=== PATIENT | female | born 1975 | race Caucasian/White ===

== ENCOUNTER → 2016-07-08 | Outpatient (CLI) | payer BC, OTHER ==
[~2016-07-08] MED LIST: CYMBALTA PO; DIAZEPAM PO; DOCUSATE SODIU100 MG PO; DULOXETINE HCL60 MG PO; GENTLE LAXATIVE10 MG PR; GLIPIZIDE10 MG PO; GLUCOTROL10 MG PO; HYDROCHLOROTHIA25 MG PO; LABETALOL HCL200 MG PO; LISINOPRIL20 MG PO; LYRICA100 MG PO; METFORMIN HCL1000 M1 PO; METFORMIN PO; MIRALAX17 GM PO; MS CONTIN30 M1 PO; MS CONTIN30 MG PO; NORMODYNE200 M1 PO; PRAVACHOL PO; PRAVACHOL80 MG PO; PRINIVIL20 M1 PO; PROTONIX PO; SYNTHROID PO; SYNTHROID175 MCG PO; TRILEPTAL; VALIUM2 MG PO; VOLTAREN75 MG PO; ZOFRAN PO
--- NOTE | ~2016-07-08 | CT2 ---
[facility] A Service of [facility] & [facility] RADIOLOGY TEXT RESULTS PATIENT: NAYELI RAMAN [facility] UN[facility] #: [id number] AGE: [address]: Minor Galdamez MD SEX: F ORDER DR: [id number] [facility] [address] [place], [place] [address] [id number] O MR#: [id number] Acc #: [id number] NAME: NAYELI RAMAN : 1975 SEX: F STUDY DATE/TIME: 07/08/2016 13:24 [facility] ROOM: STUDY DESCRIPTION: CT Abd and Pelv W Cont Attending Physician: Minor Galdamez M.D. Referring Physician: Minor Galdamez M.D. Ordering Physician: Minor Galdamez M.D. Primary Care Physician: Nicolás Carballo M.D. MEDICAL IMAGING REPORT This report is preliminary unless electronic signature is present EXAM CT abdomen and pelvis with contrast INDICATIONS Generalized abdominal pain. Follow up pancreatitis. Abnormal finding on diagnostic imaging of the pancreas. PROCEDURE Contrast-enhanced CT of the abdomen and pelvis. 100 mL of Isovue-370. This CT exam was performed with one or more of the following radiation dose reduction techniques: Automatic exposure control, adjustment of mA and/or kV according to patient size, and iterative reconstruction. COMPARISON 05/22/2016 FINDINGS ABDOMEN WITH CONTRAST: There is minimal linear atelectasis in the left lung base. Mild hepatic steatosis better shown on the comparison unenhanced study. The liver has normal size and morphology. Spleen enlarged measuring 15.9 cm. The kidneys, adrenal glands are unremarkable. There is probably a small amount of sludge in the gallbladder but no evidence for active inflammation. No bile duct dilation. Bowel loops are nondilated. Large colonic stool burden in the transverse colon and left side of the colon. Appendix is normal. Inflammatory stranding around the pancreas and extending into the retroperitoneal fascial planes. Overall, this has significantly improved compared with the previous study. No evidence for a pseudocyst. The portal, splenic and superior mesenteric veins remain patent. [facility] A Service of [facility] & [facility] RADIOLOGY TEXT RESULTS PATIENT: NAYELI RAMAN [facility] 71 UNIT #: [id number] AGE: [address]: Minor Galdamez MD SEX: F ORDER DR: PELVIS WITH CONTRAST: Previous hysterectomy. No pelvic mass or fluid. No aggressive appearing bone lesion. IMPRESSION 1. Persistent inflammatory change around the pancreas and tracking along the retroperitoneal fascial planes but significantly improved when compared with the previous study. There is no evidence for pseudocyst. The major abdominal vessels remain patent. 2. Large colonic stool burden left side of the colon. 3. Other findings are unchanged from the prior. Dictated by... Deepak Kirby M.D. THIS IS AN ELECTRONICALLY VERIFIED REPORT Deepak Kirby M.D. at 07/09/2016 7:09 AM EEJose David/jaylyn TD: 07/08/2016 22:59 JOB #: [id number] MEDICAL IMAGING REPORT COPY
[2016-07-08 12:01] LABS: HEMATOCRIT 30.3 % (35.0-45.0); HEMOGLOBIN 10.6 gm/dL (12.0-16.0); MEAN CELL VOLUME 85.6 FL (83-96); MEAN CORPUSCULAR HEMOGLOBIN 29.8 PG (28-34); MEAN CORPUSCULAR HGB CONC 34.9 g/dL (30-36); RED BLOOD COUNT 3.54 X10e (3.90-5.30); RED CELL DISTRIBUTION WIDTH 13.9 % (11.0-15.5); WHITE BLOOD COUNT 3.9 X10e3 (4.0-10.5)
[2016-07-08 12:45] LABS: ALBUMIN SERUM 3.7 g/dL (3.5-5.0); ALKALINE PHOSPHATASE 47 U/L (32-92); ALT (SGPT) 19 U/L (10-40); AST (SGOT) 23 U/L (10-42); BILIRUBIN,TOTAL 0.6 mg/dL (0.2-2.0); BLOOD UREA NITROGEN 10 mg/dL (9-23); BUN/CREATININE RATIO 16.66; CALCIUM SERUM 8.7 mg/dL (8.4-10.2); CARBON DIOXIDE 28 mmol/L (22-31); CHLORIDE 99 mmol/L (100-111); CREATININE SERUM 0.6 mg/dL (0.6-1.4); GLOM FILT RATE Estimated ABOVE60 mL/min (>60); GLUCOSE FASTING 402 mg/dL (70-110); LIPASE 12 U/L (22-51); POTASSIUM 4.4 mmol/L (3.5-5.1); PROTEIN TOTAL SERUM 6.7 g/dL (6.0-8.3); SODIUM 136 mmol/L (135-145)
[2016-07-08 12:49] LABS: AMYLASE 4 U/L (0-46)
== END | disposition home or self-care (01) ==
LOC: CCAT 10:59
PROVIDERS: Internal Medicine
DX: K85.90 Acute pancreatitis without necrosis or infection, unspecified (principal); R10.9 Unspecified abdominal pain
CPT/HCPCS: 36415; 74177; 80053; 82150; 83690; 85027; Q9967

== ENCOUNTER 2016-07-10 12:38 | Emergency (ER) | payer BC, OTHER ==
[2016-07-10 12:55] LABS: BASOPHIL% 0.3 % (0-2.5); EOSINOPHIL% 0.5 % (0.0-7.0); HEMATOCRIT 38.8 % (35.0-45.0); HEMOGLOBIN 13.5 gm/dL (12.0-16.0); LYMPHOCYTE# 1.1 X10e3 (1.0-3.5); LYMPHOCYTE% 23.7 % (17.0-45.0); MEAN CELL VOLUME 85.6 FL (83-96); MEAN CORPUSCULAR HEMOGLOBIN 29.8 PG (28-34); MEAN CORPUSCULAR HGB CONC 34.8 g/dL (30-36); MONOCYTE# 0.3 X10e3 (0-1.0); MONOCYTE% 5.7 % (3.0-12.0); NEUTROPHIL# 3.2 X10e3 (1.5-7.1); NEUTROPHIL% 69.8 % (40-75); PLATELET COUNT 229 X10e3 (140-420); RED BLOOD COUNT 4.53 X10e (3.90-5.30); RED CELL DISTRIBUTION WIDTH 14.6 % (11.0-15.5); WHITE BLOOD COUNT 4.6 X10e3 (4.0-10.5)
[2016-07-10 13:05] LABS: DIFF IND NO
[2016-07-10 13:07] LABS: INR 1.1; PROTHROMBIN TIME (PATIENT) 11.3 SECONDS (9.6-11.5)
[2016-07-10 13:16] LABS: POC - CKMB <1.0 ng/mL (0.0-7.9); POC - TROPONIN <0.05 ng/mL (<=0.05)
[2016-07-10 13:29] LABS: ALBUMIN SERUM 4.2 g/dL (3.5-5.0); ALKALINE PHOSPHATASE 47 U/L (32-92); ALT (SGPT) 23 U/L (10-40); AST (SGOT) 42 U/L (10-42); BILIRUBIN, DIRECT 0.2 mg/dL (0.0-0.2); BILIRUBIN,INDIRECT 0.9 mg/dL (0.0-0.9); BILIRUBIN,TOTAL 1.1 mg/dL (0.2-2.0); BLOOD UREA NITROGEN 11 mg/dL (9-23); CALCIUM SERUM 9.1 mg/dL (8.4-10.2); CARBON DIOXIDE 24 mmol/L (22-31); CHLORIDE 99 mmol/L (100-111); CREATININE SERUM 0.5 mg/dL (0.6-1.4); GLOM FILT RATE Estimated ABOVE60 mL/min (>60); GLUCOSE FASTING 465 mg/dL (70-110); POTASSIUM 3.8 mmol/L (3.5-5.1); PROTEIN TOTAL SERUM 7.5 g/dL (6.0-8.3); SODIUM 136 mmol/L (135-145)
[2016-07-10 13:36] LABS: URINE SOURCE CLEAN CATCH
[2016-07-10 13:48] LABS: URINE APPEARANCE CLEAR; URINE BILIRUBIN NEG (NEG); URINE BLOOD NEG (NEG); URINE COLOR YELLOW; URINE GLUCOSE >1000 MG/DL (NEG); URINE KETONE NEG (NEG); URINE LEUKOCYTE ESTERASE NEG (NEG); URINE NITRATE NEG (NEG); URINE PROTEIN 2+ (NEG); URINE SPECIFIC GRAVITY 1.038 (1.003-1.035)
[2016-07-10 13:50] LABS: CULTURE INDICATED? NO; URBCS1 AUWI 0-2 /[HPF] (0-2); URINE BACTERIA AUWI NEG (NEGATIVE); URINE SQUAMOUS EPITHELIAL CELL FEW /[HPF]; UWBCS1 AUWI 0-2 (0-5)
== END 2016-07-10 17:45 | disposition home or self-care (01) ==
LOC: CED 12:38
PROVIDERS: Emergency Medicine
DX: E11.65 Type 2 diabetes mellitus with hyperglycemia (principal); I10 Essential (primary) hypertension; Z79.899 Other long term (current) drug therapy
CPT/HCPCS: 80048; 80076; 81003; 82553; 82947; 83690; 83735; 84484; 85025; 85610; 85730; 96361; 96374; 96376; 99291

== ENCOUNTER → 2016-08-01 | Outpatient (CLI) | payer BC, OTHER ==
--- NOTE | ~2016-08-01 | CT15 ---
[facility] A Service of [facility] & [facility] RADIOLOGY TEXT RESULTS PATIENT: NAYELI RAMAN LOCATION: [facility] : 71 UNIT #: [id number] AGE: [address]: Elaina Xavier SEX: F ORDER DR: [id number] [facility] [address] [place], [place] [address] [id number] O MR#: [id number] [facility] #: [id number] NAME: NAYELI RAMAN : 1975 SEX: F STUDY DATE/TIME: 08/01/2016 11:02 UNIT: [facility] ROOM: STUDY DESCRIPTION: CT Angio Chest Attending Physician: Elaina Xavier A.P.R.N. Referring Physician: Elaina Xavier A.P.R.N. Ordering Physician: Elaina Xavier A.P.R.N. Primary Care Physician: Nicolás Carballo M.D. MEDICAL IMAGING REPORT This report is preliminary unless electronic signature is present EXAM CT angiogram of the chest 08/01/2016 INDICATIONS 41-year-old female with possible AVM. Lung nodule. TECHNIQUE CT angiogram of the chest was performed following the administration of IV contrast. Coronal, sagittal and 3-D reformatted images were obtained. This CT exam was performed with one or more of the following radiation dose reduction techniques: automatic exposure control, adjustment of mA and/or kV according to patient size, and iterative reconstruction. COMPARISON STUDIES Comparison is made with 06/08/2016 FINDINGS There is a stable 6 mm pulmonary nodule within the right lower lobe. The crescentic nodular density in the superior segment of the left lower lobe is again noted. There is no contrast enhancement of this structure and it does not appear to represent an AVM. It may represent a multilobulated nodule. There is a small calcification centrally. It is unchanged compared with the recent study and the exact etiology and chronicity is uncertain. It measures about 1.4 cm in greatest dimension. In the absence of any older chest CTs I would recommend a follow up of this in about 3-6 months. I do not think it represents an arteriovenous malformation. If it is however an arteriovenous malformation it is completely thrombosed. There is some mild skin thickening involving the left breast with respect to the right breast and some mildly prominent axillary lymph nodes on the left. Findings may reflect cellulitis. Correlate with direct physical examination. No mediastinal lymphadenopathy. There is a mildly enlarged 1.3 cm left hilar lymph node. [facility]. [facility] A Service of [facility] RADIOLOGY TEXT RESULTS PATIENT: NAYELI RAMAN LOCATION: [facility] : 71 UNIT #: [id number] AGE: [address]: Elaina Xavier SEX: F ORDER DR: No pleural effusion. Limited imaging of the upper abdomen demonstrates some minimal stranding about the pancreas but it is significantly improved compared with the patient's recent CT scans of the abdomen and likely reflects resolving pancreatitis. The bone windows are unremarkable. IMPRESSION 1. The lesion in the left lower lobe though to represent an AVM does not demonstrate any enhancement or blood flow and I do not believe it represents an arteriovenous malformation. There is a central calcification within this lesion. It may be an old infectious process, but the exact etiology and chronicity is uncertain. Unless there are any old chest CTs available I would recommend a follow up chest CT in 3-6 months to document stability. 2. There is a mildly enlarged left hilar lymph node which could also be followed. 3. Stable 6 mm nodule in the right upper lobe. 4. Additional findings as described. Dictated by... Jonn Doty M.D. THIS IS AN ELECTRONICALLY VERIFIED REPORT Jonn Doty M.D. at 08/02/2016 5:03 PM Pavel TD: 08/01/2016 17:53 JOB #: [id number] MEDICAL IMAGING REPORT Page 1 of 1 COPY
== END | disposition home or self-care (01) ==
LOC: CCAT 10:31
DX: R91.1 Solitary pulmonary nodule (principal); R59.0 Localized enlarged lymph nodes
CPT/HCPCS: 71275; Q9967